=== PATIENT | male | born 1945 | race Caucasian/White ===

== ENCOUNTER → 2020-10-24 | Day surgery (SDC) | payer MEDICARE ==
[~2020-10-24] MED LIST: ADULT LOW DOSE81 MG PO; ASPIR 8181 MG PO; ATROVENT INH S2.5 ML INH; AUGMENTIN 500-1 EACH PO; AUGMENTIN 875-1 EACH PO; BACTROBAN CREAM15 GM TOP; BENICAR40 MG PO; BYSTOLIC10 MG PO; COMBIVENT0.074 GM/I INH; COREG 12.5MG12.5 MG PO; FINASTERIDE5 MG PO; FLOMAX0.4 MG PO; GABAPENTIN400 MG PO; GLUCOPHAGE1000 MG PO; GLUCOTROL 10 MG10 MG PO; GLUCOTROL5 MG PO; IPRAT-ALBUT 0.5-3 ML INH; ISOSORBIDE MONO30 MG PO; JARDIANCE25 MG PO; K-DUR TAB 20 M20 MEQ PO; LASIX20 MG PO; LEVEMIR FL100 UNIT/1 SQ; LIPITOR TAB 2020 MG PO; LISINOPRIL20 MG PO; LOMOTIL 2.5-0.1 EACH PO; MEDROL DOSEPAK 24 MG PO; MEDROL4 MG PO; NABUMETONE750 MG PO; NEURONTIN400 MG PO; NITROGLYCERIN0.4 MG SL; NORVASC 5 MG TAB5 MG PO; OMNICEF 300 MG300 MG PO; PRAVACHOL40 MG PO; PROVENTIL HFA 61 INH INH; PULMICORT0.5 MG/2 M INH; RANEXA500 MG PO; SINGULAIR10 MG PO; SPIRIVA18 MCG INH; SYMBICORT 16010.2 GM INH; TESSALON PERLE100 MG PO; VENTOLIN/PROVE0.5 ML INH; VITAMIN D250000 UNIT PO; ZITHROMAX250 MG PO; ZOFRAN4 MG PO; ZOLOFT50 MG PO
== END | disposition home or self-care (01) ==
LOC: OR 07:30
DX: N40.1 Benign prostatic hyperplasia with lower urinary tract symptoms (principal); R35.0 Frequency of micturition; R39.14 Feeling of incomplete bladder emptying; R35.1 Nocturia; N32.89 Other specified disorders of bladder; I25.10 Atherosclerotic heart disease of native coronary artery without angina pectoris; I11.0 Hypertensive heart disease with heart failure; I50.30 Unspecified diastolic (congestive) heart failure; E11.65 Type 2 diabetes mellitus with hyperglycemia; J43.9 Emphysema, unspecified; E78.5 Hyperlipidemia, unspecified; I48.0 Paroxysmal atrial fibrillation; F41.9 Anxiety disorder, unspecified; Z87.891 Personal history of nicotine dependence; Z79.82 Long term (current) use of aspirin; Z79.84 Long term (current) use of oral hypoglycemic drugs; Z79.899 Other long term (current) drug therapy
CPT/HCPCS: 82962; J7040; J7120

== ENCOUNTER → 2020-11-11 | Outpatient (CLI) | payer MEDICARE | LOC: OPSV2 09:25 | DX: Z01.810 Encounter for preprocedural cardiovascular examination (principal); N40.1 Benign prostatic hyperplasia with lower urinary tract symptoms; I10 Essential (primary) hypertension; I25.10 Atherosclerotic heart disease of native coronary artery without angina pectoris; E11.9 Type 2 diabetes mellitus without complications | CPT/HCPCS: 93005 ==

== ENCOUNTER → 2020-11-14 | Day surgery (SDC) | payer MEDICARE | END | disposition home or self-care (01) | LOC: OR 07:30 | DX: N40.1 Benign prostatic hyperplasia with lower urinary tract symptoms (principal); R35.0 Frequency of micturition; R39.14 Feeling of incomplete bladder emptying; R35.1 Nocturia; R39.12 Poor urinary stream; I11.0 Hypertensive heart disease with heart failure; I50.9 Heart failure, unspecified; E11.9 Type 2 diabetes mellitus without complications; I25.10 Atherosclerotic heart disease of native coronary artery without angina pectoris; E78.5 Hyperlipidemia, unspecified; J44.9 Chronic obstructive pulmonary disease, unspecified; Z95.5 Presence of coronary angioplasty implant and graft; Z87.891 Personal history of nicotine dependence; Z79.82 Long term (current) use of aspirin; Z79.84 Long term (current) use of oral hypoglycemic drugs; Z79.899 Other long term (current) drug therapy | CPT/HCPCS: 82962; J1100; J1956; J2405; J3010; J7030; J7050; J7120; L8699 ==

== ENCOUNTER → 2020-12-24 | Outpatient (CLI) | payer MEDICARE | LOC: KOH-I 12:14 | DX: R05 Cough (principal); R91.8 Other nonspecific abnormal finding of lung field | CPT/HCPCS: 71046 ==

== ENCOUNTER 2021-01-06 10:45 | Emergency (ER) | payer MEDICARE ==
[2021-01-06 12:04] LABS: HEMOGLOBIN 15.1 gm/dl (14.0-17.5); RED BLOOD COUNT 5.36 M/UL (4.20-5.50); WHITE BLOOD COUNT 4.8 K/UL (4.5-11.0)
[2021-01-06 12:36] LABS: BUN/CREATININE RATIO 17 (0-10)
[2021-01-06] MEDS ORDERED: OMNICEF 300 MG300 MG PO (18:12)
== END 2021-01-06 18:22 | disposition home or self-care (01) ==
LOC: ER1 10:45
PROVIDERS: Nurse Practitioner
DX: J90 Pleural effusion, not elsewhere classified (principal); I42.9 Cardiomyopathy, unspecified; R09.02 Hypoxemia; Z20.822 Contact with and (suspected) exposure to COVID-19
CPT/HCPCS: 36600; 71045; 80053; 82550; 82553; 82803; 83874; 84484; 85025; 85379; 93005; 96365; 96366; 96375; 99285; J0456; J0696; J7030; Q9967; U0002

== ENCOUNTER → 2021-02-06 | Outpatient (CLI) | payer MEDICARE | LOC: KOH-I 10:37 | DX: J12.9 Viral pneumonia, unspecified (principal) | CPT/HCPCS: 71046 ==

== ENCOUNTER → 2021-08-14 | Outpatient (CLI) | payer MEDICARE | LOC: CT 13:03 | DX: N20.0 Calculus of kidney (principal); N28.89 Other specified disorders of kidney and ureter; N40.0 Benign prostatic hyperplasia without lower urinary tract symptoms; K80.20 Calculus of gallbladder without cholecystitis without obstruction | CPT/HCPCS: Q9967 ==

== ENCOUNTER 2021-10-07 15:05 | Inpatient (IN) | payer MEDICARE ==
[~2021-10-07] VITALS: Ht 180.3 cm; Wt 108.4 kg
[~2021-10-07 15:05] MED LIST changes: +PROAIR HFA8.5 GM INH; -PROVENTIL HFA 61 INH INH; +SPIRIVA RESPIMAT4 GM INH; -SPIRIVA18 MCG INH
[2021-10-07 15:57] LABS: HEMOGLOBIN 17.1 gm/dl (14.0-17.5); RED BLOOD COUNT 6.24 M/UL (4.20-5.50); WHITE BLOOD COUNT 7.6 K/UL (4.5-11.0)
[2021-10-07 16:40] LABS: BUN/CREATININE RATIO 18 (0-10)
[2021-10-08 06:23] LABS: RED BLOOD COUNT 5.44 M/UL (4.20-5.50); WHITE BLOOD COUNT 5.3 K/UL (4.5-11.0)
[2021-10-08 06:24] LABS: HEMOGLOBIN 15.1 gm/dl (14.0-17.5)
[2021-10-08 06:53] LABS: BUN/CREATININE RATIO 27 (0-10)
[2021-10-08] MEDS ORDERED: AMOX TR-K CLV1 EAC4 PO (10:18)
[2021-10-09 06:22] LABS: HEMOGLOBIN 14.7 gm/dl (14.0-17.5); RED BLOOD COUNT 5.39 M/UL (4.20-5.50)
[2021-10-09 06:24] LABS: WHITE BLOOD COUNT 8.1 K/UL (4.5-11.0)
[2021-10-09 06:55] LABS: BUN/CREATININE RATIO 45 (0-10)
[2021-10-10 02:19] LABS: RED BLOOD COUNT 5.33 M/UL (4.20-5.50); WHITE BLOOD COUNT 9.5 K/UL (4.5-11.0)
[2021-10-10 02:53] LABS: BUN/CREATININE RATIO 46 (0-10)
[2021-10-10] MEDS ORDERED: OMNICEF 300 MG300 MG PO (10:03)
== END 2021-10-10 13:05 | disposition home or self-care (01) | DRG 193 ==
LOC: ER1 15:05 → CDU 17:40 → MED SURG 4 18:51 → ZEROF 18:56 → CDU 20:10 → MED SURG 4 10-08 01:31
PROVIDERS: Emergency Medicine; ADMIT Internal Medicine
DX: J18.9 Pneumonia, unspecified organism (principal); Z20.822 Contact with and (suspected) exposure to COVID-19; J96.01 Acute respiratory failure with hypoxia; J96.02 Acute respiratory failure with hypercapnia; J44.0 Chronic obstructive pulmonary disease with (acute) lower respiratory infection; J44.1 Chronic obstructive pulmonary disease with (acute) exacerbation; M51.36 Other intervertebral disc degeneration, lumbar region; E78.00 Pure hypercholesterolemia, unspecified; K59.00 Constipation, unspecified; I25.10 Atherosclerotic heart disease of native coronary artery without angina pectoris; I10 Essential (primary) hypertension; E11.9 Type 2 diabetes mellitus without complications; Z79.4 Long term (current) use of insulin; Z95.5 Presence of coronary angioplasty implant and graft; Z82.49 Family history of ischemic heart disease and other diseases of the circulatory system; Z79.01 Long term (current) use of anticoagulants; Z79.82 Long term (current) use of aspirin
CPT/HCPCS: 0240U; 36415; 36600; 71045; 80048; 80053; 81001; 82550; 82553; 82803; 82962; 83605; 83880; 84484; 85025; 85027; 87040; 93005; 94640; 94760; 96365; 96366; 96375; 99285; G0378; J0456; J0696; J1650; J2930; J7030